=== PATIENT | male | born 1990 | race Caucasian/White ===

== ENCOUNTER 2018-01-18 18:48 | Emergency (ER) | payer OTHER ==
[~2018-01-18] VITALS: Ht 182.9 cm; Wt 70.5 kg
[2018-01-18 18:50] VITALS: BP 116/63; PULSE 83; TEMP 98.2
== END 2018-01-18 19:36 | disposition home or self-care (01) ==
LOC: COL.ER 18:48
DX: J32.9 Chronic sinusitis, unspecified (principal); F17.210 Nicotine dependence, cigarettes, uncomplicated
CPT/HCPCS: J1100